=== PATIENT | male | born 1970 | race Two or more races ===

== ENCOUNTER 2023-03-19 19:36 | Emergency (ER) | payer SELFPAY | END 2023-03-19 20:34 | disposition home or self-care (01) | LOC: MW.ED 19:36 | DX: L03.211 Cellulitis of face (principal); L72.9 Follicular cyst of the skin and subcutaneous tissue, unspecified | CPT/HCPCS: 99283 ==

== ENCOUNTER 2023-06-06 13:33 | Emergency (ER) | payer OTHER | END 2023-06-06 14:41 | disposition home or self-care (01) | LOC: MW.ED 13:33 | DX: I10 Essential (primary) hypertension (principal); Z75.8 Other problems related to medical facilities and other health care | CPT/HCPCS: 99283 ==

== ENCOUNTER 2023-08-18 22:34 | Emergency (ER) | payer OTHER | END 2023-08-18 23:19 | disposition home or self-care (01) | LOC: MW.ED 22:34 | DX: Z02.89 Encounter for other administrative examinations (principal); R03.0 Elevated blood-pressure reading, without diagnosis of hypertension; Z75.8 Other problems related to medical facilities and other health care | CPT/HCPCS: 99282; 99283 ==

== ENCOUNTER 2023-09-20 15:55 | Emergency (ER) | payer OTHER ==
[2023-09-20] MEDS: Hydrochlorothiazide 12.5 MG Cap PO STA (16:22)
[2023-09-20] MEDS ORDERED: Hydrochlorothiazide 25 MG Tab PO STA (16:39)
== END 2023-09-20 16:28 ==
LOC: MW.ED 15:55
DX: Z02.89 Encounter for other administrative examinations (principal); I10 Essential (primary) hypertension; Z76.0 Encounter for issue of repeat prescription; F17.210 Nicotine dependence, cigarettes, uncomplicated
CPT/HCPCS: 99282; A9270; 99283

== ENCOUNTER 2023-11-17 14:13 | Emergency (ER) | payer SELFPAY ==
[2023-11-17] MEDS: Hydrochlorothiazide 12.5 MG Cap PO STA (14:44)
== END 2023-11-17 14:51 ==
LOC: MW.ED 14:13
DX: Z02.89 Encounter for other administrative examinations (principal); Z76.0 Encounter for issue of repeat prescription; I10 Essential (primary) hypertension; F17.210 Nicotine dependence, cigarettes, uncomplicated; Z75.8 Other problems related to medical facilities and other health care
CPT/HCPCS: 99283; A9270

== ENCOUNTER 2023-12-28 01:14 | Emergency (ER) | payer OTHER | END 2023-12-28 01:36 | LOC: MW.ED 01:14 | DX: Z02.89 Encounter for other administrative examinations (principal); I10 Essential (primary) hypertension; Z79.899 Other long term (current) drug therapy; Z75.8 Other problems related to medical facilities and other health care | CPT/HCPCS: 99283 ==

== ENCOUNTER 2024-12-17 20:11 | Emergency (ER) | payer SELFPAY ==
[2024-12-17 20:53] LABS: BASOPHILS ABSOLUTE AUTO 0.04 K/uL (0.00-0.20); BASOPHILS PERCENT AUTO 0.3 % (0.0-1.0); EOSINOPHILS ABSOLUTE AUTO 0.31 K/uL (0.00-0.45); EOSINOPHILS PERCENT AUTO 2.4 % (0.0-6.0); IMMATURE GRAN ABSOLUTE AUTO 0.04 K/uL (0.00-0.05); IMMATURE GRAN PERCENT AUTO 0.3 % (0.0-0.4); LYMPHOCYTES ABSOLUTE AUTO 2.75 K/uL (1.00-4.80); LYMPHOCYTES PERCENT AUTO 21.6 % (24.0-44.0); MEAN PLATELET VOLUME 10.4 fL (9.4-12.4); MONOCYTES ABSOLUTE AUTO 0.96 K/uL (0.00-0.80); MONOCYTES PERCENT AUTO 7.5 % (0.0-8.0); NEUTROPHILS ABSOLUTE AUTO 8.64 K/uL (1.80-7.70); NEUTROPHILS PERCENT AUTO 67.9 % (41.0-71.0); NRBC ABSOLUTE 0.00 K/uL (0.00-0.02); NRBC PERCENT 0.0 /100WBC (0.0-0.2); PLATELET COUNT,PLT 155 K/uL (150-400); RED BLOOD CELL COUNT 4.62 M/uL (4.52-5.90); WHITE BLOOD CELL COUNT,WBC 12.74 K/uL (3.9-11.3)
[2024-12-17] MEDS: cefTRIAXone 2 GM in Water For Injection, Sterile 20 ML IVPUSH ONE (21:02)
[2024-12-17 21:35] LABS: A/G RATIO 0.9 (0.9-1.6); ALANINE AMINOTRANSFERASE,ALT 40.0 IU/L (14-63); ASPARTATE AMNIOTRANSFERASE,AST 19.0 IU/L (15-37); BILIRUBIN TOTAL 0.3 mg/dL (0.2-1.0); BLOOD UREA NITROGEN,BUN 18.0 mg/dL (7.0-18.0); CARBON DIOXIDE,CO2 25.9 mmol/L (21.0-32.0); CHLORIDE,CL 105.0 mmol/L (98-107); CREATININE 0.9 mg/dL (0.8-1.3); EST CRCL DRUG DOSING (CG) 115.5 mL/min; GLUCOSE RANDOM 125.0 mg/dL (74-106); POTASSIUM,K 4.3 mmol/L (3.5-5.1); PROTEIN TOTAL,TP 7.1 g/dL (6.4-8.2); SODIUM,NA 139.0 mmol/L (136-148)
[2024-12-17 21:37] LABS: ESTIMATED GFR 100.0 mL/min (>60)
[2024-12-17] MEDS: Sodium Chloride 0.9% 10 ML Syringe FLUSH PRN (21:37)
[2024-12-17] MEDS: Sodium Chloride 0.9% 2.5 ML Syringe FLUSH PRN (21:37)
[2024-12-17] MEDS: Iopamidol 755 MG/ML 500 ML Multipack Bottle IVPUSH STA (22:08)
== END 2024-12-17 23:41 | disposition home or self-care (01) ==
LOC: MW.ED 20:11
DX: L03.011 Cellulitis of right finger (principal); I10 Essential (primary) hypertension; Z79.899 Other long term (current) drug therapy
CPT/HCPCS: 36415; 73130; 73201; 80053; 85025; 85652; 86140; 87040; 96365; 96375; 99284; A4216; J0696; J1271; Q9967